=== PATIENT | female | born 1940 | race African-American/Black ===

== ENCOUNTER 2017-03-19 13:01 | Emergency (ER) | payer OTHER ==
[~2017-03-19 13:01] MED LIST: AMOXICILLIN; HUMALOG; HYZAAR PO; LANTUS; LETROZOLE; METROPROLOL PO; NORCO; PROTONIX PO; PROVASTATIN PO
[2017-03-19 16:44] VITALS: BP 172/88
== END 2017-03-19 16:44 | disposition home or self-care (01) ==
LOC: ED 13:01
DX: G44.209 Tension-type headache, unspecified, not intractable (principal); M50.30 Other cervical disc degeneration, unspecified cervical region; E11.9 Type 2 diabetes mellitus without complications; I10 Essential (primary) hypertension
CPT/HCPCS: 20552; J1885; J2001

== ENCOUNTER → 2017-03-24 | Outpatient (CLI) | payer OTHER | END | disposition home or self-care (01) | LOC: RD 11:22 | DX: M54.2 Cervicalgia (principal) ==